=== PATIENT | female | born 1990 | race Caucasian/White ===

== ENCOUNTER 2025-02-11 15:09 | Emergency (ER) | payer BC, SELFPAY ==
--- NOTE | 2025-02-11 15:19 | PC.NURSE ---
pt left with corrections and [facility] taking the pt to [place]
== END 2025-02-11 15:19 | disposition left against medical advice (07) ==
DX: R11.0 Nausea (principal)
CPT/HCPCS: 99199

== ENCOUNTER 2025-02-26 13:17 | Emergency (ER) | payer BC, SELFPAY ==
--- OUTSIDE RECORDS SUMMARY | 2025-02-26 13:36 | XMS_ITS | Referral Summary ---
Author Organization [facility] Address [address] [place] [address] Care Team Providers Care J2Ee Architect Name Role Phone No, Physician Primary Care Provider [phone] No, Physician Unavailable Allergies Active Allergy Reactions Criticality Noted Date Comments Latex Latex Itching Low Itching and rash Medications naloxone (NARCAN) 4 mg/actuation spray,non-aerosolI ndications:Opiate- Induced Respiratory Depression Call 911. Administer a single spray in one nostril. Repeat every 3 minutes as needed if no or minimal response. 1 each 0 Active naloxone (NARCAN) 4 mg/actuation spray,non-aerosol Administer 1 spray into affected nostril(s) as needed for opioid reversal Call 911. Administer a single spray in one nostril. Repeat every 3 minutes as needed if no or minimal response. 2 each 2 Active ondansetron ODT (ZOFRAN-ODT) 4 mg disintegrating tablet Take 1 tablet (4 mg total) by mouth every 8 (eight) hours as needed for nausea or vomiting 12 tablet 3 Active Active Problems Problem Noted Date Diagnosed Date Exposure to gonorrhea 03/28/2021 Abscess of left arm 05/09/2018 Lactic acidosis 05/08/2018 Assessment & Plan (05/08/2018 3:02 AM CDT): Likely secondary to cellulitis. Patient is receiving IV fluids. Will continue to monitor. Left arm cellulitis 05/08/2018 Assessment & Plan (05/08/2018 2:59 AM CDT): Improving with clindamycin. Continue clindamycin. P.r.n. Toradol and [place] for pain. General surgery has been consulted for possible abscess. Will start warm compresses. Continue to monitor. Patient also has numbness in her left arm which could be due to edema. She states her left arm feels heavy however she is able to move it. No urgent need for MRI at this time however if symptoms do not improve went edema has improved will consider MRI as patient does have a history of IVDA. Tobacco use 05/08/2018 Assessment & Plan (05/08/2018 3:01 AM CDT): Patient smokes 0.5-1 pack per day for the past 18 years. She is refusing nicotine patch at this time. History of methamphetamine abuse 05/08/2018 Assessment & Plan (05/08/2018 3:01 AM CDT): Patient has a history of IVDA. She states she last used meth a few weeks ago. Thrombocytopenia 05/08/2018 Assessment & Plan (05/08/2018 3:03 AM CDT): Likely due to lab error however infection may also be possible etiology. Patient's platelets were 390 on 05/01/2018. Will repeat in the a.m.. She has no signs of bruising or petechiae. 08/10/2011 Antepartum hemorrhage 08/10/2011 Bronchial asthma 08/10/2011 Assessment & Plan (05/08/2018 3:00 AM CDT): Mild intermittent. Patient states she uses her rescue inhaler 2 times a month in the summer time. Will order p.r.n. albuterol. Social History Tobacco Use Types Packs/Day Years Used Date Smoking Tobacco: Every Day Cigarettes Smokeless Tobacco: Never Alcohol Use Standard Drinks/Week Comments No 0 (1 standard drink = 0.6 oz pur e alcohol) Comments No Sex and Gender Information Value Date Recorded Sex Assigned at Not on file Legal Sex Female 7:07 AM VIDEOGAME DESIGNER Gender Identity Not on file Sexual Orientation Not on file Last Filed Vital Signs Vital Sign Reading Time Taken Comments Blood Pressure 133/91 12/04/2022 7:25 AM VIDEOGAME DESIGNER Pulse 94 12/04/2022 7:25 AM VIDEOGAME DESIGNER Temperature 36.6 C (97.9 F) 12/04/2022 7:25 AM VIDEOGAME DESIGNER Respiratory Rate 18 12/04/2022 7:25 AM VIDEOGAME DESIGNER Oxygen Saturation 99% 12/04/2022 7:25 AM VIDEOGAME DESIGNER Inhaled Oxygen Concentration - - Weight 65.8 kg (145 lb) 12/04/2022 7:25 AM VIDEOGAME DESIGNER Height 167.6 cm (5' 6 ) 12/04/2022 7:25 AM VIDEOGAME DESIGNER Body Mass Index 23.4 12/04/2022 7:25 AM VIDEOGAME DESIGNER Plan of Treatment Not on file Insurance PLAN [facility] PLAN SERENA GUEVARA [id number] Advance Directives For more information, please contact: [phone] * Full Code (Latest Code Status on File) Date Activated Date Inactivated Comments 05/08/2018 1:09 AM 05/13/2018 5:39 PM Care Teams J2Ee Architect Relationship Specialty Start Date End Date No, Physician PCP - General 07/10/20 No, Physician 07/10/20
--- OUTSIDE RECORDS SUMMARY | 2025-02-26 13:36 | XMS_ITS | Clinical Summary ---
Author Organization [facility] Address [address] [place] [address] Care Team Providers Care Land Survey Technician Name Role Phone No, Physician Primary Care Provider [phone] No, Physician Unavailable Allergies Active Allergy Reactions [...] with clindamycin. Continue clindamycin. P.r.n. Toradol and [place] for pain. General surgery has been consulted [...] the summer time. Will order p.r.n. albuterol. Medical History Medical History Date Comments Asthma Social History Tobacco Use Types Packs/Day Years Used Date Smoking Tobacco: Every Day Cigarettes Smokeless Tobacco: Never Alcohol Use Standard Drinks/Week Comments No 0 (1 standard drink = 0.6 oz pur e alcohol) Comments No Sex and Gender Information Value Date Recorded Sex Assigned at Not on file Legal Sex Female 7:07 AM EQUIPMENT RECORDS SUPERVISOR Gender Identity Not on file Sexual Orientation Not on file Obstetrics History Last Filed Vital Signs Vital Sign Reading Time Taken Comments Blood Pressure 133/91 12/04/2022 7:25 AM EQUIPMENT RECORDS SUPERVISOR Pulse 94 12/04/2022 7:25 AM EQUIPMENT RECORDS SUPERVISOR Temperature 36.6 C (97.9 F) 12/04/2022 7:25 AM EQUIPMENT RECORDS SUPERVISOR Respiratory Rate 18 12/04/2022 7:25 AM EQUIPMENT RECORDS SUPERVISOR Oxygen Saturation 99% 12/04/2022 7:25 AM EQUIPMENT RECORDS SUPERVISOR Inhaled Oxygen Concentration - - Weight 65.8 kg (145 lb) 12/04/2022 7:25 AM EQUIPMENT RECORDS SUPERVISOR Height 167.6 cm (5' 6 ) 12/04/2022 7:25 AM EQUIPMENT RECORDS SUPERVISOR Body Mass Index 23.4 12/04/2022 7:25 AM EQUIPMENT RECORDS SUPERVISOR Plan of Treatment Health Maintenance Due Date Last Done Comments Cervical Cancer Screening 1990 Depression Screening 1990 Hepatitis C Screening 1990 DTaP/Tdap/Td Vaccine (1 - Tdap) 2001 Varicella Vaccines (1 of 2 - 13+ 2-dose series) 2003 Hepatitis B Screening 02/10/2008 Regular Well Visit/Exam 18-64 02/10/2008 Pneumococcal vaccine <65 (1 of 2 - PCV) 2009 Influenza Vaccine (Season Ended) 2025 HPV Vaccines Aged Out No longer eligi ble based on patient's age to complete this topic Insurance SERENA GUEVARA [id number] PLAN PLAN Advance Directives For more information, please contact: [phone] * Full Code (Latest Code Status on File) Date Activated Date Inactivated Comments 05/08/2018 1:09 AM 05/13/2018 5:39 PM Care Teams Land Survey Technician Relationship Specialty Start Date End Date No, Physician PCP - General 07/10/20 No, Physician 07/10/20
[2025-02-26 13:53] VITALS: BP 98/66; PULSE 80; RESP 16; TEMP 35.8; O2SAT 95
--- NOTE | 2025-02-26 14:17 | ED_ITS ---
HPI - Dental/Oral General Chief complaint: Dental/Oral Stated complaint: Mouth Sore/Tooth Pain Time Seen by Provider: 02/26/25 14:18 Source: patient, RN notes reviewed and old records reviewed Mode of arrival: ambulatory Limitations: no limitations History of Present Illness HPI Narrative: 35-year-old female presents to the [facility] with dental pain. Pain is worse on the right side. Denies treatment prior to arrival States has been going on 3 days Very poor dentition Treatment prior to arrival: none Related Data Allergies Allergy/AdvReac Type Severity Reaction Status Date / Time latex Allergy Unknown Verified 08/21/14 08:26 Review of Systems Review of Systems: All systems reviewed & are unremarkable except as noted in HPI and below Constitutional: Constitutional: Reports no additional constitutional complaints ENT: Reports as per HPI and Reports dental pain Cardiovascular: Cardiovascular: Reports no additional cardiovascular complaints, Denies chest pain and Denies dyspnea Respiratory: Respiratory: Reports no additional respiratory complaints, Denies chest congestion, Denies cough and Denies dyspnea Musculoskeletal: Musculoskeletal: Reports no additional musculoskeletal complaints Integumentary/Breasts: Skin/Breast: Reports system reviewed and no additional complaints, except as docu [facility] Family History Family History Other Family history of malignant neoplasm of breast Social History Social History Smoking status: Never smoker Comments At the time of my signature, I reviewed and agree with the nursing past medical, surgical, social, and family history. There is no relevant family history pertinent to the patient complaint. Exam Const: General: cooperative, healthy appearing, comfortable, no acute distress, well developed, alert and well nourished Nutritional Appearance: well nourished Orientation/consciousness: patient oriented x3 Limitations: no limitations HENMT: Head: normal to inspection Ears: hearing grossly normal bilaterally, external ears normal, TM's normal bilaterally, EAC's normal, mastoids normal and no periauricular adenopathy Face/Nose/Sinus: Normal external nose present, Normal nares present and No nasal discharge present Mouth: Yes Normal oral and palatal mucosa present, Yes lip normal, Yes tongue normal and Yes moist mucous membranes Teeth and gingiva: poor dentition (Very poor dentition throughout, swollen gingiva right upper and lower) and other (Decayed teeth throughout) Eyes: General: appearance normal, both eyes and all related structures Alignment and Position: alignment normal Neck: Neck: normal visual inspection, full ROM, no lymphadenopathy and no meningeal signs Chest: Chest palpation & inspection: normal inspection of the chest Resp: Effort & Inspection: normal respiratory effort and able to speak in complete sentences Auscultation: clear to auscultation bilaterally, no crackles, no rales, no rhonchi and no wheezes Cardio: Rate: regular rate Skin: General skin exam: normal color and no rashes or lesions noted Neuro: General: patient oriented x3, gait normal, moves all extremities and no meningeal signs Cognition (Neuro): normal cognition Speech: normal speech Gait exam (Neuro): Normal gait present Extrem: General: normal to inspection, full ROM, capillary refill normal and normal gait Psych: Appearance: grossly normal and well kempt Mental Status: mental status grossly normal Speech and movement: Normal speech and movement present and Clear speech present Affect: normal affect Attitude: cooperative Course Course Level of Care: Express Care Visit Vital Signs Vital signs: Vital Signs Temperature 96.4 F L 02/26/25 13:53 Pulse Rate 80 02/26/25 13:53 Respiratory Rate 16 02/26/25 13:53 Blood Pressure 98/66 L 02/26/25 13:53 Pulse Oximetry 95 02/26/25 13:53 Oxygen Delivery Room Air 02/26/25 13:53 Temperature 96.4 F L 02/26/25 13:53 Pulse Rate 80 02/26/25 13:53 Respiratory Rate 16 02/26/25 13:53 Blood Pressure 98/66 L 02/26/25 13:53 Pulse Oximetry 95 02/26/25 13:53 Oxygen Delivery Room Air 02/26/25 13:53 Reviewed MDM - Dental/Oral MDM Narrative Medical decision making narrative: Patient sitting in exam room. Nontoxic, vitals stable. Patient with very poor dentition presents with pain, swelling. Patient with probable abscess, dental list given. Patient appropriate for outpatient treatment with close follow-up Discharge instructions reviewed with patient, as well as provided in writing per nursing staff. The instructions also include specific and strict return/GO TO THE ER as well as f/u information. All questions have been answered, and the patient deny any further questions with discharge and discharge plan. Some parts of this dictation were generated by voice recognition software and may contain typographical and/or grammatical inaccuracies. Differential Diagnosis Differential diagnosis: Likely gingival abscess, dental caries, toothache and dental abscess Critical Care Time Critical Care Time Critical Care Time: No Discharge Plan Discharge Clinical Impression: Dental caries, Dental abscess Patient Disposition: Home, Self-Care Condition: Stable Instructions: Antibiotic Form, Dental Abscess (ED) Additional Instructions: Finish the entire course of antibiotics & use mouthwash After every time you eat be sure to use salt water rinses. Apply ice to face to help with pain. Take Tylenol alternating with Motrin as needed for pain. You can alternate every 4 hours You need to follow-up with a dental provider as soon as possible for further evaluation and treatment. A list of dental providers has been given to you Follow up with a Primary Care Provider (PCP) about medical needs. A PCP can help keep you healthy by preventive medicine and screening. Go to the ER for New or worsening symptoms. Patient Language: Armenian Prescriptions: New penicillin V potassium 500 mg tablet 500 mg PO QID 7 Days Qty: 28 0RF Follow-up/Referrals: PHYSICIAN,TOOL LATHE OPERATOR [Primary Care Provider] - Time of Disposition: 14:25
--- NOTE | 2025-02-26 14:27 | PC.NURSE ---
dental provider list given for follow up
== END 2025-02-26 14:26 | disposition home or self-care (01) ==
PROVIDERS: Emergency Provider Nurse Practitioner
DX: K02.9 Dental caries, unspecified (principal); K04.7 Periapical abscess without sinus
CPT/HCPCS: 99213; G0463

== ENCOUNTER 2025-07-30 15:44 | Emergency (ER) | payer BC, SELFPAY ==
--- OUTSIDE RECORDS SUMMARY | 2025-07-30 15:46 | XMS_ITS | Clinical Summary ---
Author Organization [facility] Address [address] [place] [address] Care Team Providers Care Instructor Weaving Name Role Phone No, Physician Primary Care Provider [phone], Physician Unavailable Allergies Active Allergy Reactions [...] with clindamycin. Continue clindamycin. P.r.n. Toradol and [place] for pain. General surgery has been consulted [...] on file Legal Sex Female 7:07 AM SILO WORKER Gender Identity Not on file Sexual Orientation Not on file Obstetrics History Last Filed Vital Signs Vital Sign Reading Time Taken Comments Blood Pressure 133/91 12/04/2022 7:25 AM SILO WORKER Pulse 94 12/04/2022 7:25 AM SILO WORKER Temperature 36.6 C (97.9 F) 12/04/2022 7:25 AM SILO WORKER Respiratory Rate 18 12/04/2022 7:25 AM SILO WORKER Oxygen Saturation 99% 12/04/2022 7:25 AM SILO WORKER Inhaled Oxygen Concentration - - Weight 65.8 kg (145 lb) 12/04/2022 7:25 AM SILO WORKER Height 167.6 cm (5' 6) 12/04/2022 7:25 AM SILO WORKER Body Mass Index 23.4 12/04/2022 7:25 AM SILO WORKER Plan of Treatment Health Maintenance Due Date Last Done Comments Cervical Cancer Screening 1990 Depression Screening 1990 Hepatitis C Screening 1990 DTaP/Tdap/Td Vaccine (1 - Tdap) 2001 Varicella Vaccines (1 of 2 - 13+ 2-dose series) 2002 Hepatitis B Screening 02/10/2008 Regular Well Visit/Exam 18-64 02/10/2008 Pneumococcal vaccine <65 (1 of 2 - PCV) 2009 HPV Vaccines (1 - 3-dose SCDM series) 2017 Influenza Vaccine (#1) 2025 Insurance [id number] [place] [id number] [place] [address] PLAN Advance Directives For more information, please contact: [phone] * Full Code (Latest Code Status on File) Date Activated Date Inactivated Comments 05/08/2018 1:09 AM 05/13/2018 5:39 PM Care Teams Instructor Weaving Relationship Specialty Start Date End Date No, Physician PCP - General 07/10/20 No, Physician 07/10/20
[2025-07-30 15:54] VITALS: BP 125/78; PULSE 97; RESP 16; TEMP 36.6; O2SAT 98
--- NOTE | 2025-07-30 16:04 | ED.DENTAL ---
HPI - Dental/Oral General Chief complaint: Dental/Oral Stated complaint: Tooth Pain/Swelling Time Seen by Provider: 07/30/25 16:25 Source: patient, RN notes reviewed and old records reviewed Mode of arrival: ambulatory Limitations: no limitations History of Present Illness HPI Narrative: 35-year-old female presents to the [facility] with dental pain and swelling. Pain started 2 days ago. Was at the dentist in [place] yesterday, was not prescribed anything. Has an appointment on 04 August Patient with a history of very poor dentition Pain to the right lower gingiva Related Data Allergies Allergy/AdvReac Type Severity Reaction Status Date / Time latex Allergy Unknown Verified 08/21/14 08:26 Review of Systems Review of Systems: All systems reviewed & are unremarkable except as noted in HPI and below Constitutional: Constitutional: Reports no additional constitutional complaints ENT: Reports as per HPI Cardiovascular: Cardiovascular: Reports no additional cardiovascular complaints, Denies chest pain and Denies dyspnea Respiratory: Respiratory: Reports no additional respiratory complaints, Denies chest congestion, Denies cough and Denies dyspnea Musculoskeletal: Musculoskeletal: Reports no additional musculoskeletal complaints Integumentary/Breasts: Skin/Breast: Reports system reviewed and no additional complaints, except as docu [facility] Family History Family History Other Family history of malignant neoplasm of breast Social History Social History Smoking status: Never smoker Comments At the time of my signature, I reviewed and agree with the nursing past medical, surgical, social, and family history. There is no relevant family history pertinent to the patient complaint. Exam Const: General: cooperative, healthy appearing, comfortable, no acute distress, well developed, alert and well nourished Nutritional Appearance: well nourished Orientation/consciousness: patient oriented x3 Limitations: no limitations HENMT: Head: normal to inspection Ears: hearing grossly normal bilaterally, external ears normal, TM's normal bilaterally, EAC's normal, mastoids normal and no periauricular adenopathy Mouth: Yes lip normal and Yes tongue normal Teeth and gingiva: abnormal tooth and associated gingiva (Swelling gingiva, multiple decayed teeth) and poor dentition Eyes: General: appearance normal, both eyes and all related structures Alignment and Position: alignment normal Neck: Neck: normal visual inspection, full ROM, no lymphadenopathy and no meningeal signs Chest: Chest palpation & inspection: normal inspection of the chest Resp: Effort & Inspection: normal respiratory effort and able to speak in complete sentences Cardio: Rate: regular rate Skin: General skin exam: normal color and no rashes or lesions noted Neuro: General: patient oriented x3, gait normal, moves all extremities and no meningeal signs Cognition (Neuro): normal cognition Speech: normal speech Gait exam (Neuro): Normal gait present Extrem: General: normal to inspection, full ROM, capillary refill normal and normal gait Psych: Appearance: grossly normal and well kempt Mental Status: mental status grossly normal Speech and movement: Normal speech and movement present and Clear speech present Affect: normal affect Attitude: cooperative Course Course Level of Care: Express Care Visit Vital Signs Vital signs: Vital Signs Temperature 97.9 F 07/30/25 15:54 Pulse Rate 97 07/30/25 15:54 Respiratory Rate 16 07/30/25 15:54 Blood Pressure 125/78 07/30/25 15:54 Pulse Oximetry 98 07/30/25 15:54 Temperature 97.9 F 07/30/25 15:54 Pulse Rate 97 07/30/25 15:54 Respiratory Rate 16 07/30/25 15:54 Blood Pressure 125/78 07/30/25 15:54 Pulse Oximetry 98 07/30/25 15:54 Reviewed MDM - Dental/Oral MDM Narrative Medical decision making narrative: Patient sitting in exam room. Patient is nontoxic, vitals stable. Patient presents with dental pain. Had seen a dentist yesterday and has an appointment on the 04 of August for evaluation. Swelling, right lower gingiva, will cover with antibiotic. Discharge instructions reviewed with patient, as well as provided in writing per nursing staff. The instructions also include specific and strict return/GO TO THE ER as well as f/u information. All questions have been answered, and the patient deny any further questions with discharge and discharge plan. Some parts of this dictation were generated by voice recognition software and may contain typographical and/or grammatical inaccuracies. Differential Diagnosis Differential diagnosis: Likely gingival abscess, dental caries, toothache, dental abscess and fracture of tooth Critical Care Time Critical Care Time Critical Care Time: No Discharge Plan Discharge Clinical Impression: Dental caries, Dental infection Patient Disposition: Home Condition: Stable Instructions: Antibiotic Form, Dental Abscess (ED) Additional Instructions: Finish the entire course of antibiotics Is important you would use good oral hygiene, pressure teeth twice a day. Use a good mouthwash After every time you eat be sure to use salt water rinses. Apply ice to face to help with pain. Take Tylenol alternating with Motrin as needed for pain. You can alternate every 4 hours You need to follow-up with a dental provider as soon as possible for further evaluation and treatment. A list of dental providers has been given to you Follow up with a Primary Care Provider (PCP) about medical needs. A PCP can help keep you healthy by preventive medicine and screening. Go to the ER for New or worsening symptoms. Patient Language: Nepalese Prescriptions: New penicillin V potassium 500 mg tablet 500 mg PO QID 7 Days Qty: 28 0RF Follow-up/Referrals: PHYSICIAN,WARDROBE TECHNICIAN [Primary Care Provider, Internal Medicine] Stand Alone Forms: Work/School Release IP Time of Disposition: 16:29
== END 2025-07-30 16:33 | disposition home or self-care (01) ==
PROVIDERS: Emergency Provider Nurse Practitioner
DX: K02.9 Dental caries, unspecified (principal); K04.7 Periapical abscess without sinus
CPT/HCPCS: 99213; G0463